=== PATIENT | male | born 1980 | race Caucasian/White ===

== ENCOUNTER → 2022-11-07 08:50 | Outpatient (CLI) | payer OTHER, SELFPAY ==
--- NOTE | 2022-11-07 | DI.MRI.S_ITS ---
PROCEDURE: MR CERVICAL SPINE WO CON INDICATIONS: CERVICAL SPINAL STENOSIS TECHNIQUE: Noncontrast sagittal T1 spin echo and T2 fast spin echo, sagittal STIR, foraminal oblique sagittal T2 fast spin echo, and axial gradient echo or T2 fast spin echo through the cervical spine. COMPARISON: [facility], CR, XR CERVICAL SPINE 2 OR 3 VIEWS, 10/21/2022, 9:13. [facility], , MR CERVICAL SPINE WITHOUT CONTRAST, 06/08/2020, 19:57. FINDINGS: Image quality: Excellent. Alignment and Curvature: There is normal bony alignment. Bone Marrow: Marrow demonstrates normal overall signal. Spinal Cord: Visualized spinal cord has normal size and signal. No cerebellar tonsillar herniation. Paraspinous Soft Tissues: No paravertebral masses. Prevertebral soft tissues are normal in thickness. C2-C3: Normal appearance. C3-C4: The disc height and disk signal are well-preserved. A mild degree of generalized disc osteophyte complex is seen. Mild facet joint hypertrophy is seen. Mild bilateral neural foraminal narrowing is seen. Minimal central canal narrowing is seen. These imaging findings have progressed compared to the prior study. C4-C5: The disc height and disk signal are well-preserved. Mild to moderate disc osteophyte complex is seen. Mild to moderate facet hypertrophy is seen at this level. There is moderate bilateral neural foraminal narrowing seen, right worse than left. Mild central canal narrowing is seen. These imaging findings are more prominent than on the prior study. C5-C6: Minimal loss of disc height is seen. There is loss of disc signal. Moderate generalized disc osteophyte complex is seen. Moderate facet joint hypertrophy is seen. There is moderate to severe bilateral neural foraminal narrowing seen. Moderate central canal narrowing is seen. These imaging findings have progressed compared to the prior study. C6-C7: Mild loss of disc height is seen. Loss of disc signal is seen. Moderate disc osteophyte complex is seen, which is eccentric to the left. Mild facet joint hypertrophy is seen. There is moderate left-sided and mild right-sided neural foraminal narrowing. [id number] central canal narrowing is seen at this level. These imaging findings are slightly worse than on to the prior study. C7-T1: No significant abnormality is seen. IMPRESSION: Multiple levels of cervical spine degenerative change are seen, which are progressed at several levels compared to 2020. Dictated by: Danny Marti M.D. on 11/07/2022 at 9:43 Approved by: Danny Marti M.D. on 11/07/2022 at 9:46
== END ==
PROVIDERS: Referring Provider Orthopaedic Surgery Orthopaedic Surgery of the Spine; Visit Provider Orthopaedic Surgery Orthopaedic Surgery of the Spine
DX: M48.02 Spinal stenosis, cervical region (principal); M47.812 Spondylosis without myelopathy or radiculopathy, cervical region
CPT/HCPCS: 72141